=== PATIENT | male | born 1940 | race Caucasian/White ===

== ENCOUNTER 2017-12-01 14:28 | Emergency (ER) | payer BC ==
--- NOTE | 2017-12-01 15:02 | ED Physician Documentation ---
PD HPI SKIN - Stated complaint Stated Complaint: RASH ON BOTH ARMS - Chief complaint Chief Complaint: Wound - History obtained from History obtained from: Patient - History of Present Illness Timing - onset: Other (1 week itchy rash, started LUE, then RUE now also R thigh. No new exposures.) Review of Systems Constitutional: denies: Fever, Chills Cardiac: denies: Chest pain / pressure, Palpitations Respiratory: denies: Dyspnea, Cough GI: denies: Abdominal Pain, Nausea, Vomiting PD PAST MEDICAL HISTORY - Present Medications Home Medications: Ambulatory Orders Medication Instructions Recorded Confirmed Nystatin/Triamcin 1 gm TP TID 28 Days #1 oint...g. 12/01/17 [Nystatin-Triamcinolone Ointm] PD ED PE NORMAL - Vitals Vital signs reviewed: Yes - General General: Alert and oriented X 3, No acute distress - Extremities Extremities: Other (There is a scaly rash in both axilla onto the medial biceps and in the right medial thigh that looks more fungal but could also be a contact dermatitis, a scraping was done for NIKI prep during exam.) - Neuro Neuro: Alert and oriented X 3, Normal speech Results - Vitals Vitals: Vital Signs - 24 hr 12/01/17 14:34 Temperature 36.6 C Heart Rate 86 Respiratory 18 Rate Blood Pressure 136/90 H O2 Saturation 97 Oxygen O2 Source Room air - Labs Labs: Microbiology 12/01/17 14:58 NIKI Preparation - Final Skin - Left PD MEDICAL DECISION MAKING - Sepsis Event Vital Signs: Vital Signs - 24 hr 12/01/17 14:34 Temperature 36.6 C Heart Rate 86 Respiratory 18 Rate Blood Pressure 136/90 H O2 Saturation 97 Oxygen O2 Source Room air Departure - Departure Disposition: 01 Home, Self Care Clinical Impression: Contact dermatitis Qualifiers: Contact dermatitis type: irritant Contact dermatitis trigger: unspecified trigger Qualified Code(s): L24.9 - Irritant contact dermatitis, unspecified cause Condition: Good Record reviewed to determine appropriate education?: Yes Instructions: ED Dermatitis Contact Follow-Up: [facility] [Provider Group] - Within 1 week Prescriptions: Nystatin/Triamcin [Nystatin-Triamcinolone Ointm] 1 gm TP TID 28 Days #1 oint...g. Comments: Your blood pressure was elevated today on check into the emergency department. This does not mean that you have hypertension, it is a common phenomenon to come to the emergency department and have elevated blood pressure. I recommend that you see your primary care physician within the week to have it rechecked when you are feeling better.
[2017-12-01 15:14] VITALS: BP 136/90
== END 2017-12-01 15:37 | disposition home or self-care (01) ==
LOC: ED 14:28
DX: L24.9 Irritant contact dermatitis, unspecified cause (principal); R03.0 Elevated blood-pressure reading, without diagnosis of hypertension
CPT/HCPCS: 87220; 99283